=== PATIENT | female | born 1935 | race Caucasian/White ===

== ENCOUNTER 2017-04-17 08:38 | Emergency (ER) | payer MEDICARE ==
[~2017-04-17] VITALS: Ht 160 cm; Wt 68.0 kg
[~2017-04-17 08:38] MED LIST: AUGMENTIN1 TA2 PO; DARVOCET-N 1001 EACH PO; MEDROL 4MG TABLE4 MG PO; NOMEDS; OMNICEF 300 MG300 MG PO; PHENERGAN 25MG.25 M1 PO; PREDNISONE 20MG20 MG PO; PROAIR HFA0.09 MG/AC IH; ZITHROMAX Z-PA250 M2 PO
[2017-04-17 08:48] LABS: LYMPH # 7.2 K/mm3 (0.7-4.5); LYMPH % 55.5 % (10-50.0)
--- OUTSIDE RECORDS SUMMARY | 2017-04-17 08:49 | External Medical Summary Rpt | CCD ---
Author Author , EMELINA TARANGO Address Unknown Phone [email or web address] Name Relationship Address Phone SHAYNE, Next Of Kin Unknown Unavailable AMY Immunization Name Date Rout CVX Reac Dose Comm Prov Is Faci e tion ent ider Refu lity Give sed n Infl 09-1 135 0.5 Hist FAMP No FAMP uenz 3-20 mL oric RASO RASO a, 15 al FLMN FLMN High Info rmat Dose ion - Sour ce Unsp ecif ied Infl 10-2 Intr 150 999 Hist FAMP No FAMP uenz 1-20 amus oric RASO RASO a 14 cula al FLMN FLMN Quad r Info Inj rmat ion - Sour ce Unsp ecif ied
--- OUTSIDE RECORDS SUMMARY | 2017-04-17 08:49 | External Medical Summary Rpt | CCD ---
Author Author , EMELINA TARANGO Address Unknown Phone .[employer] Purpose Continuity of Care Document - 02-23-2016 through 2016 Results Labs Lab Lab Date Result Refere Interp Status Commen Order Detail nces retati t Range on Lipid pnl with direct LDL SerPl (02-25-2016 05:27) Cholest 02-24- 181 0-200 complet 016 mg/dL ed SerPl-m 05:27 Cnc Trigl 68 0-150 complet SerPl-m 016 mg/dL ed Cnc 05:27 HDLc 02-24- 56 40-60 complet SerPl-m 016 mg/dL ed Cnc 05:27 Articho 103 0-130 complet ke IgE 016 mg/dL ed Qn 05:27 BNP SerPl-mCnc (02-25-2016 05:27) BNP 02-24-2 151.0 0.0-100 complet SerPl-m 016 pg/mL .0 ed Cnc 05:27 Lipid pnl with direct LDL SerPl (02-24-2016 05:14) Cholest 02-23- 190 0-200 complet 016 mg/dL ed SerPl-m 05:14 Cnc Trigl 02-23- 72 0-150 complet SerPl-m 016 mg/dL ed Cnc 05:14 HDLc 02-23- 57 40-60 complet SerPl-m 016 mg/dL ed Cnc 05:14 Articho 110 0-130 complet ke IgE 016 mg/dL ed Qn 05:14 Hgb A1c Bld (02-24-2016 05:14) Hgb A1c 6.00 % 4.00-6. complet MFr 016 00 ed Bld 05:14 Bas Metab 2000 Pnl SerPl (02-24-2016 03:05) Glucose 112 70-130 complet BldC 016 mg/dL ed Glucomt 03:05 r-mCnc Bas Metab 2000 Pnl SerPl (02-23-2016 21:05) Glucose 10-16-2 116 70-130 complet BldC 016 mg/dL ed Glucomt 21:05 r-mCnc Troponin T SerPl Ql (02-23-2016 13:33) Troponi 10-16-2 0.15 0.00-0. complet n I 016 ng/mL 60 ed SerPl-m 13:33 Cnc CBC W Diff pnl,unspecified Bld (02-23-2016 13:25) Eosinop 10-16-2 0.08 0.10-0. complet hil # 016 10*3/mm 30 ed Bld 13:25 3 Auto Basophi 10-16-2 0.02 0.00-0. complet ls # 016 10*3/mm 20 ed Bld 13:25 3 Auto Neutrop 10-16-2 4.43 1.50-8. complet hils # 016 10*3/mm 30 ed Bld 13:25 3 Auto Lymphoc 10-16-2 2.21 0.60-4. complet ytes # 016 10*3/mm 80 ed Bld 13:25 3 Auto Imm 10-16-2 0.02 0.00-0. complet Granulo 016 10*3/mm 03 ed cytes # 13:25 3 Bld WBC 10-16-2 7.27 3.50-10 complet nRBC 016 10*3/mm .80 ed cor # 13:25 3 Bld RBC # 10-16-2 4.31 3.89-5. complet Bld 016 10*6/mm 14 ed Auto 13:25 3 Hgb 10-16-2 12.0 11.5-15 complet Bld-mCn 016 g/dL .5 ed c 13:25 Hct VFr 10-16-2 37.9 % 34.5-44 complet Bld 016 .0 ed Auto 13:25 MCV RBC 10-16-2 87.9 fL 80.0-99 complet Auto 016 .0 ed 13:25 MCH RBC 10-16-2 27.8 pg 27.0-31 complet Qn 016 .0 ed Auto 13:25 MCHC 10-16-2 31.7 32.0-36 complet RBC 016 g/dL .0 ed Auto-mC 13:25 nc RDW RBC 10-16-2 13.4 % 11.3-14 complet 016 .5 ed Auto-Rt 13:25 o RDW RBC 43.1 fl 37.0-54 complet Auto 016 .0 ed 13:25 PMV Bld 11.2 fL 6.0-12. complet Auto 016 0 ed 13:25 Platele 149 150-450 complet t # Bld 016 10*3/mm ed Auto 13:25 3 Neutrop 60.9 % 41.0-71 complet hils 016 .0 ed NFr Bld 13:25 Auto Lymphoc 30.4 % 24.0-44 complet ytes 016 .0 ed NFr Bld 13:25 Auto Monocyt 7.0 % 0.0-12. complet es NFr 016 0 ed Bld 13:25 Auto Eosinop 1.1 % 0.0-3.0 complet hil NFr 016 ed Bld 13:25 Auto Basophi 0.3 % 0.0-1.0 complet ls NFr 016 ed Bld 13:25 Auto Imm 0.3 % 0.0-0.6 complet Granulo 016 ed cytes 13:25 NFr Bld Monocyt 0.51 0.00-1. complet es # 016 10*3/mm 00 ed Bld 13:25 3 Auto aPTT PPP (02-23-2016 13:25) aPTT 24.0 24.0-31 complet PPP 016 seconds .0 ed 13:25 AST SerPl-cCnc (02-23-2016 13:25) AST 16 U/L 0-33 complet SerPl-c 016 ed Cnc 13:25 ALT SerPl-cCnc (02-23-2016 13:25) ALT 14 U/L 7-40 complet SerPl w 016 ed 13:25 P-5'-P- cCnc TSH SerPl (02-23-2016 13:25) TSH 2.187 0.350-5 complet SerPl 016 mIU/mL .350 ed DL<=0.0 13:25 5 mIU/L-a Cnc PT BldC (02-23-2016 13:18) PT PPP 15.0 12.8-15 complet 016 seconds .2 ed 13:18 INR PPP 1.3 0.8-1.2 complet 016 ed 13:18
--- OUTSIDE RECORDS SUMMARY | 2017-04-17 08:49 | External Medical Summary Rpt | CCD ---
Author Author [employer] Organization [employer] Address Unknown Phone Unavailable Purpose Continuity of Care Document - through 2016
--- OUTSIDE RECORDS SUMMARY | 2017-04-17 08:49 | External Medical Summary Rpt | CCD ---
Author Author , EMELINA TARANGO Address Unknown Phone [email or web address] ([employer] Purpose Continuity of Care Document - 02-23-2016 [...]
--- OUTSIDE RECORDS SUMMARY | 2017-04-17 08:49 | External Medical Summary Rpt | CCD ---
Author Author , EMELINA TARANGO Address Unknown Phone [email or web address] Support Name Relationship Address Phone SHAYNE, Next [...]
[2017-04-17 08:53] LABS: BUN 47 mg/dL (7-18); HEMOGLOBIN 10.2 g/dL (12.2-16.2)
[2017-04-17 08:54] LABS: GFR (ESTIMATED) 12 ML/MIN (59-)
--- NOTE | 2017-04-17 09:05 | RADIOLOGY REPORT PS360 ---
CT HEAD W/O CONTRAST COMPARISON: None HISTORY: Slurred speech, left-sided facial droop TECHNIQUE: Multiaxial scans obtained from base skull to the vertex and were performed without contrast. FINDINGS: There is high density within the right cerebellar hemisphere consistent with acute hemorrhage and there is mild circumferential vasogenic edema. This likely is a hypertensive hemorrhage or could be secondary to amyloid angiopathy. I somewhat doubt aneurysmal rupture. The basilar cisterns are prominent. There is diffuse ventriculomegaly . There are prominent periventricular hypodensities consistent with chronic ischemic white matter changes. There is a focal old lacunar infarct right periventricular white matter. There is no midline shift. The sylvian fissures and cortical sulci are prominent. Bony calvarium appears intact. IMPRESSION: Acute right-sided Iglesias of hemorrhage with minimal surrounding vasogenic edema most likely hypertensive hemorrhage and/or secondary to amyloid angiopathy
[2017-04-17 09:08] LABS: URINE BILIRUBIN - DIPSTICK NEGATIVE (NEG); URINE BLOOD TRACE-INTACT (NEG)
[2017-04-17 09:12] LABS: NEUTROPHILS 30 % (42-76)
[2017-04-17 09:14] LABS: URINE RENAL CELLS OCC #/HPF
--- NOTE | 2017-04-17 09:22 | Emergency Room Report ---
History of Present Illness Time Seen by 0840 Presenting Problem in Triage Pt arrived:Ambulance Stretcher Presenting Problem:EMS CALLED STROKE ALERT. PT PRESENTS WITH LEFT SIDED FACIAL DROOP, AND GLOBAL WEAKNESS. 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 N Clinical Suspician of Infection? N Mental Status: 2 - Mildly Altered Sepsis Risk:Low Sepsis Risk Have you (or family members/close friends) recently traveled outside the [place]? N If Yes, where/when: Have you had exposure to infectious disease within the past month? N TB? Other? Specify: Patient got up this morning around 0630, ate toast and coffee, then witnessed acute onset of left sided facial droop and global weakness at 0745. EMS arrives with stroke alert activated, and brought the patient directly to the CT suite for emergency brain CT. ALLERGIES Coded Allergies: MDX - Codeine (CODEINE) (NA-NAUSEA/VOMITING 05/30/11) Home Medications Active Scripts CEFDINIR (Cefdinir) 300 MG PO BID #10 CAP Prov: 09/27/14 Azithromycin (Zithromax) 250 MG PO DAILY #6 TAB Prov: 09/27/14 Prednisone (Prednisone 20MG) 20 MG PO BID #10 TAB Prov: 09/27/14 Albuterol Sulfate (Proair Hfa) 2 PUFFS IH Q6HP PRN SHORTNESS OF AIR #1 INH Prov: 09/27/14 History Medical History General CAD? No Angina: No NC: Yes Hypertension? Yes Hyperlipidemia? Yes CHF? 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 Yes Anemia? No Hernia? No Thyroid Problems? No Hypothyroidism? No CVA? Yes Seizures? No Diabetes? No End Stage Renal Disease? No UTI? No Stones? No GB Disease: Yes Nephritic Syndrome? No Asplenia? No Hepatitis? No Sickle Cell Disease? No Cataracts? Yes Glaucoma? No MRSA? No TB? No Cancer? No Immunization Hx DT/Tetanus > 10 Years Ago Flu 0107-4180 Flu Season Pneumonia Received In Past Surgical Hx Previous Surgery?Y BACK SURG CHOLECYSTECTOMY HEMORRHOIDECTOMY STOMACH SURG X 3 LEFT KNEE SURG Hernia Repair TUMOR RIGHT BREAST CATARACTS REMOVED EYE IMPLANTS Family History Family Hx Diabetes Yes CAD Yes Hypertension Yes Hyperlipidemia Yes Cancer No TB No Social History Alcohol Alcohol: No Review of Systems All Other Systems Reviewed and Negative (per family and EMS) Psychiatric/Neurological see HPI (ambulates w/ walker PRN), denies other (denies cephalgia) Physical Exam Vital Signs Vital Signs Date Time Temp Pulse Resp B/P Pulse O2 O2 Flow FiO2 Ox Delivery Rate 04/17 0838 98.4 75 16 205/98 91 General Appearance no apparent distress, resting quietly on stretcher, alert and verbal, obvious L facial droop. No complaints other than global weakness. Eye Exam - bilateral eye EOMI, bilateral eye other Ear, Nose, Throat hearing grossly normal (OP wet dentures removed no FB) Neck normal inspection, non-tender, supple, full range of motion Respiratory Status Yes: trachea midline, chest symmetrical, non tender chest. No: respiratory distress, tender on palpation, use of accessory muscles, pain on inspiration, pain on expiration, productive cough, non productive cough. Lung Sounds bilateral: normal breath sounds, lungs clear. Cardiovascular normal exam, regular rate/rhythm, no peripheral edema, no gallop, no JVD, no murmur, no rub, normal peripheral pulses (occ PVC's ) Peripheral Pulses Pulses normal Yes Gastrointestinal normal bowel sounds, normal exam, non tender, soft, no organomegaly, no pulsatile mass, no guarding, no rebound Extremities normal inspection, normal capillary refill, no calf tenderness, no pedal edema, limited range of motion Strength 2 Lower Ext (L), 2 Lower Ext (R), 4 Upper Ext (L), 4 Upper Ext (R) Neurologic alert, oriented x 3, patient unable to elevate BLE against gravity. Hand Ironer are equal but hard to check finger to nose as does not elevate BUE well enough to do so; she can identify laterality. No tremor. Speech clear and fluent. , alert and oriented x two; slightly drowsy but follows commands, pinpoint pupils. Unable to elevate BLE against gravity. Very slight dysarthria noted by staff but was able to speak with MD on arrival. Glascow Coma Scale Glascow Coma Scale Response Value EYE response: 4 Spontaneously 4 MOTOR response: 6 OBEYS 6 VERBAL response: 5 Oriented & Converses 5 Total 15 Skin intact, normal color, abrasions Stroke Score/Tx Stroke Evaluation Initial symptoms indicative of possible stroke? Yes NIH STROKE SCORE NIH STROKE SCORE Response Value 1a.Level of Consciousness ALERT 0 1b.LOC Questions ANSWERS ONE CORRECTLY 1 1c.LOC Commands OBEYS ONE CORRECTLY 1 2 .Best Gaze NORMAL 0 3 .Visual NO VISUAL LOSS 0 4 .Facial Palsy PARTIAL 2 5a.Motor Arm Left NO DRIFT 0 5b.Motor Arm Right NO DRIFT 0 6a.Motor Leg Left NO EFFORT AGAINST GRAVITY 3 6b.Motor Leg Right NO EFFORT AGAINST GRAVITY 3 7 .Limb Ataxia ABSENT 0 8 .Sensory NORMAL 0 9 .Best Language NO APHASIA 0 10.Dysarthria NORMAL ARTICULATION 0 ED.NIH11 NO NEGLECT 0 Total 10 Medical Decision Making LABS/Meds/Orders Pt receiving controlled substance in ED? No Results/Orders Laboratory Tests 04/17/17 0835: Sodium 142, Potassium 4.0, Chloride 105, Carbon Dioxide 28, BUN 47 H, Creatinine 3.6 H, Estimated GFR (MDRD) 12 *L, Glucose 149 H, Calcium 9.8, PT 12.0 H, INR 1.11 H, WBC 13.0 H, RBC 3.44 L, Hgb 10.2 L, Hct 31.7 L, MCV 92.3, RDW 13.7, Plt Count 139 L, MPV 10.1, Gran % 34.1 L, Gran # 4.5, Total Counted Pending, Lymphocytes % 55.5 H, Monocytes % 5.0, Eosinophils % 4.6, Basophils % 0.8, Neutrophils Pending, Lymphocytes (Manual) Pending, Lymphocytes # 7.2 H, Monocytes # 0.7, Eosinophils # 0.6 H, Basophils # 0.1, Platelet Estimate Pending, PUBS MCHC 31.9, MCH 29.5 Current Medication Orders Sig/Keiko Start time Last Medication Dose Route Stop Time Status Admin Ondansetron HCl 0 .STK-MED ONE 04/17 859 DC .ROUTE Sodium Chloride 10 ML PRN PRN 04/17 845 AC IV 04/18 840 Orders Procedure Date/time Status DIET-NOTHING BY MOUTH 04/[address] HEAD W/O CONTRAST 04/17 841 Active 12 LEAD EKG-ISATU (INITIAL) 04/17 840 Active ELECTROCARDIOGRAM REQUEST 04/[address] HEAD REQ 04/17 840 Complete IV SALINE LOCK 04/17 840 Active PROTHROMBIN TIME 04/17 840 Complete CBC WITH AUTO DIFF 04/17 840 Active BASIC METABOLIC PROFILE 04/17 840 Complete DIFFERENTIAL-WBC 04/17 835 Active CM/EKG CM/EKG EKG rate, NSR (occ APC's NSR 71) XRAY/CT/US XRAY/CT/US CT head CT interpretation by reviewed by me, discussed w/radiologist Time results known: 858 CT Results abnormal (R cerebellar hemorrhage no MLS) Consult MD Physician Consult Time Called 0900 Reason Transfer to facility, Neuro eval/care Comments Dr. Leach stroke: [facility] emerg[facility] Date 04/17/17 Time 920 Comment BS was 149 per lab. Labetalol IV per d/w Dr. Leach SBP 199/88. Air ambulance at bedside. Departure Departure Time of Disposition 901 Disposition DC/XFER from ER to [facility] Clinical Impression Primary Impression: Acute cerebellar hemorrhage Condition STABLE Referrals Srikanth TORRES,Shadi (Family) ED Critical Care Critical Care Yes Time spent < 30 min Vital system(s) involved: Central Nervous System I was present at bedside for Coordinating pt's care, Interpreting EKGs/Strips , During my initial exam, Reviewing lab results, Reviewing old records, Discussing pt condition, For re-examinations, Examining radiographs (consults; d /w family ) at 0921
[2017-04-17 09:47] VITALS: BP 194/89
== END 2017-04-17 09:55 | disposition short-term general hospital (02) ==
LOC: ER 08:38
PROVIDERS: Emergency Medicine
DX: I61.4 Nontraumatic intracerebral hemorrhage in cerebellum (principal); R29.810 Facial weakness; I10 Essential (primary) hypertension; R29.710 NIHSS score 10
CPT/HCPCS: J2405